=== PATIENT | female | born 1990 | race Caucasian/White ===

== ENCOUNTER 2016-11-29 13:09 | Inpatient (IN) | payer OTHER ==
[2016-11-29 14:33] LABS: BASOPHIL 0.5 % (0-2.0); EOSINOPHIL 0.1 % (0-4.5); MCHC 32.4 g/dl (32.0-36.0); MEAN CELL VOLUME 80.4 fl (80-96); MEAN PLT VOLUME 9.3 fl (7.5-11.1); NEUTROPHILS 78.8 % (42.8-82.8); PLATELET COUNT 143 K/MM3 (134-434); RDW 14.4 % (11.6-15.6); WHITE BLOOD COUNT 12.9 K/mm3 (4.0-10.0)
[2016-11-29 14:50] LABS: INR 0.99 (0.82-1.09); PROTHROMBIN TIME (PATIENT) 10.9 SEC (9.98-11.88)
[2016-11-29 14:53] LABS: ACTIVATED PTT 26.5 SECONDS (26.9-34.4)
[2016-11-29] MEDS ORDERED: DEXTROSE 5%-LACTATED RINGERS 1,000 ML IV SCH ×2 (15:00→17:30)
[2016-11-29 15:44] LABS: CALCIUM 9.4 mg/dL (8.5-10.1); COCKROFT - GAULT 167.875; CREATININE 0.6 mg/dL (0.55-1.02)
[2016-11-29 15:48] VITALS: BMI 32.2
--- NOTE | 2016-11-29 18:32 | HP ---
Past Medical History - Admission Chief Complaint: Vaginal bleeding History of Present Illness: 26 yo , @ 38 weeks gestation, admitted due to vaginal bleeding. Upon admission, Pt was 3 cm dilated 60% effaced.She c/o mild discomfort. History Source: Patient Limitations to Obtaining History: No Limitations - Past Medical History ...: 2 ...Para: 1 ...Term: 1 ...: 0 ...Spon : 0 ...Induced : 0 ...Multiple Gestation: 0 ...LMP: 02/19/16 ... Weeks Gestation by Dates: 40.4 ...EDC by Dates: 11/25/16 ...EDC by Sono: 12/01/16 - Past Surgical History Past Surgical History: Yes: None Hx Myomectomy: No Hx Transabdominal Cerclage: No - Smoking History Smoking history: Never smoked Have you smoked in the past 12 months: No Aproximately how many cigarettes per day: 3 - Alcohol/Substance Use Hx Alcohol Use: No History of Substance Use: reports: None - Social History Usual Living Arrangement: Yes: With Significant Other History of Recent Travel: No Home Medications - Allergies Allergies/Adverse Reactions: Allergies Allergy/AdvReac Type Severity Reaction Status Date / Time No Known Allergies Allergy Verified 11/29/16 14:37 - Home Medications Home Medications: Ambulatory Orders Nitrofurantoin Monohyd/M-Cryst [Macrobid -] 1 cap PO DAILY 10/10/16 Vit No.129/Iron/FA [ One Daily Tablet] 1 tab PO DAILY 10/10/16 Family Disease History - Family Disease History Family History: Unremarkable Review of Systems - Review of Systems Constitutional: reports: No Symptoms Eyes: reports: No Symptoms HENT: reports: No Symptoms Neck: reports: No Symptoms Cardiovascular: reports: No Symptoms Respiratory: reports: No Symptoms Gastrointestinal: reports: No Symptoms Genitourinary: reports: No Symptoms, Vaginal Bleeding Breasts: reports: No Symptoms Reported Musculoskeletal: reports: No Symptoms Integumentary: reports: No Symptoms Neurological: reports: No Symptoms Endocrine: reports: No Symptoms Hematology/Lymphatic: reports: No Symptoms Psychiatric: reports: No Symptoms Pain Intensity: 3 Physical Exam - Maternity Vital Signs: Vital Signs Temperature 98.4 F 11/29/16 18:00 Pulse Rate 84 11/29/16 18:00 Respiratory Rate 19 11/29/16 18:00 Blood Pressure 130/68 11/29/16 18:00 O2 Sat by Pulse Oximetry (%) Constitutional: Yes: Well Nourished Eyes: Yes: Conjunctiva Clear HENT: Yes: Atraumatic Neck: Yes: Supple, Trachea Midline Cardiovascular: Yes: Regular Rate and Rhythm Lungs: Clear to auscultation - Abdominal Exam/OB Number of Fetuses: Single Presentation: Vertex Contractions: Yes Regularity: Regular Intensity: Mild - Vaginal Exam/OB Vaginal Bleediing: Light Speculum Exam: No Dilatation (cm): 3 Effacement (%): 60 Amniotic Membrane Status: Intact Station: -2 - Physical Exam Musculoskeletal: Yes: WNL ...Motor Strength: WNL Psychiatric: Yes: Alert, Oriented - Labs Lab Results: CBC, BMP 11/29/16 14:22 11/29/16 14:22 Problem List - Problems (1) Vaginal bleeding during , antepartum Code(s): O46.90 - ANTEPARTUM HEMORRHAGE, UNSPECIFIED, UNSPECIFIED TRIMESTER Qualifiers: Trimester: third trimester Qualified Code(s): O46.93 - Antepartum hemorrhage, unspecified, third trimester Assessment/Plan Vaginal bleeding in Admit to L&D Pitocin augmentation Anticipate
[2016-11-29] MEDS ORDERED: OXYTOCIN 15 UNITS/ LR 250 ML 250 ML IVPB SCH (19:15)
[2016-11-29] MEDS ORDERED: ELECTROLYTE-148 SOLN 1,000 ML IV SCH (21:30)
[2016-11-29] MEDS ORDERED: FENTANYL/BUPIVACAINE/NS/PF - PCEA - 50 ML DISP.SYRIN EP SCH (21:45)
[2016-11-30] MEDS ORDERED: ACETAMINOPHEN 325 MG TABLET (FP) PO ONE (01:05)
[2016-11-30] MEDS ORDERED: BENZOCAINE 28 GM HEMORRHOIDAL OINTMENT TP PRN (03:05)
[2016-11-30] MEDS ORDERED: BISACODYL 10 MG SUPP.RECT RC PRN (03:05)
[2016-11-30] MEDS ORDERED: BENZOCAINE 20% 57 GM BOTTLE TP PRN (03:05)
[2016-11-30] MEDS ORDERED: WITCH HAZEL 50% (TUCKS) 40 PAD/JAR PAD TP PRN (03:05)
[2016-11-30] MEDS ORDERED: METHYLERGONOVINE MALEATE 0.2 MG/1 ML AMP IM PRN (03:05)
[2016-11-30] MEDS ORDERED: D5W-LR W/ 20 UNITS OXYTOCIN 1,000 ML IV SCH (03:15)
--- NOTE | 2016-11-30 03:16 | PN ---
Delivery - Delivery Vaginal Delivery: Spontaneous Type of Anesthesia: Epidural Episiotomy/Laceration: Midline EBL (cc): 300 Delivery, Single - Feeding Plan Initial Plan: Elected not to breastfeed exclusively throughout hospitalization Remarks - Remarks Remarks: Normal spontaneous vaginal delivery of a live infant boy over midlline episiotomy. Nose / Oropharynx suctioned @ perineum. Cord clamped and cut. Placenta expelled spontaneously intact. EBL 300 cc Midline episotomy repaired with 2.0 Chromic.
[2016-11-30] MEDS: ACETAMINOPHEN 325 MG TABLET (FP) PO PRN ×3 (05:35→20:31)
[2016-11-30] MEDS: IBUPROFEN 600 MG TABLET (FP) PO PRN ×3 (05:35→20:29)
[2016-11-30] MEDS: FERROUS SO4 325 MG TABLET (FP) PO SCH ×3 (08:45→17:04)
[2016-11-30] MEDS: PRENATAL VITAMINS W/ FOLIC ACID TABLET (FP) PO SCH (09:46)
[2016-11-30] MEDS ORDERED: DIPHTH,PERTUSS(ACELL),TET 0.5 ML DISP.SYRIN IM ONE (12:00)
[2016-12-01] MEDS: IBUPROFEN 600 MG TABLET (FP) PO PRN ×2 (05:55→16:30)
[2016-12-01] MEDS: ACETAMINOPHEN 325 MG TABLET (FP) PO PRN ×2 (05:57→16:31)
[2016-12-01] MEDS: FERROUS SO4 325 MG TABLET (FP) PO SCH ×3 (08:22→17:18)
[2016-12-01 08:51] LABS: BASOPHIL 0.4 % (0-2.0); EOSINOPHIL 0.8 % (0-4.5); MCH 26.3 pg (25.7-33.7); MCHC 32.9 g/dl (32.0-36.0); MEAN CELL VOLUME 79.9 fl (80-96); MEAN PLT VOLUME 10.4 fl (7.5-11.1); NEUTROPHILS 75.4 % (42.8-82.8); PLATELET COUNT 154 K/MM3 (134-434); RDW 14.5 % (11.6-15.6); WHITE BLOOD COUNT 16.7 K/mm3 (4.0-10.0)
[2016-12-01] MEDS: PRENATAL VITAMINS W/ FOLIC ACID TABLET (FP) PO SCH (09:52)
[2016-12-01] MEDS ORDERED: CEFAZOLIN (PRE-DOCKED) 50 ML IVPB SCH (14:00)
[2016-12-01] MEDS ORDERED: SENNOSIDES/DOCUSATE COMBO (SENNA PLUS) TABLET (UD) PO PRN (22:00)
[2016-12-02] MEDS: IBUPROFEN 600 MG TABLET (FP) PO PRN ×2 (00:31→08:01)
[2016-12-02] MEDS: ACETAMINOPHEN 325 MG TABLET (FP) PO PRN ×2 (00:32→08:01)
[2016-12-02] MEDS: FERROUS SO4 325 MG TABLET (FP) PO SCH ×2 (08:00→11:58)
[2016-12-02 08:40] VITALS: BP 126/75; PULSE 84; TEMP 98.8
[2016-12-02] MEDS: PRENATAL VITAMINS W/ FOLIC ACID TABLET (FP) PO SCH (09:44)
== END 2016-12-02 12:50 | disposition home or self-care (01) | DRG 560 ==
LOC: JDEL 13:09 → JLDR 13:40 → J3W 11-30 04:38
PROVIDERS: ADMIT Obstetrics & Gynecology; ATTEND Obstetrics & Gynecology
PROC: 0W8NXZZ Division of Female Perineum, External Approach (ICD-10-PCS; principal; 2016-11-30)
PROC: 10E0XZZ Delivery of Products of Conception, External Approach (ICD-10-PCS; 2016-11-30)
DX: O46.93 Antepartum hemorrhage, unspecified, third trimester (principal); Z3A.38 38 weeks gestation of pregnancy; Z37.0 Single live birth
CPT/HCPCS: 36415; 59409; 80048; 85025; 85610; 85730; 86593; 86850; 86900; 86901; 90715

== ENCOUNTER 2018-03-31 19:59 | Emergency (ER) | payer OTHER ==
--- NOTE | 2018-03-31 20:38 | PDOC ---
Rapid Medical Evaluation Chief Complaint: Edema Time Seen by Provider: 03/31/18 20:33 Medical Evaluation: Allergies Allergy/AdvReac Type Severity Reaction Status Date / Time No Known Allergies Allergy Verified 03/31/18 20:33 03/31/18 20:35 I have performed a brief in-person evaluation of this patient. The patient presents with a chief complaint of:L popliteal region swelling X 3wks, denies calf pain or recent travel, 22wks Pertinent physical exam findings:+ tenderness with swelling noted behind knee, unable to fully extend leg I have ordered the following:duplex The patient will proceed to the ED for further evaluation. Discharge Disposition - Diagnosis Leg pain Qualifiers: Laterality: left Qualified Code(s): M79.605 - Pain in left leg - Referrals - Patient Instructions - Post Discharge Activity
[2018-03-31 20:43] VITALS: BP 130/59; PULSE 73; TEMP 98.8; BMI 29.2
--- NOTE | 2018-03-31 22:01 | PDOC ---
History of Present Illness - General Chief Complaint: Edema Stated Complaint: LEFT LEG PAIN Time Seen by Provider: 03/31/18 20:33 - History of Present Illness Initial Comments: 03/31/18 22:01 27 -year-old 22 week gravid female presents for evaluation of one week of left leg pain. She states she was running for the train felt pain in the back of her knee since that time she's been having left knee pain radiating up to her lower back. She points to the lateral aspect of the left thigh as the area of the discomfort. Past History - Past Medical History Allergies/Adverse Reactions: Allergies Allergy/AdvReac Type Severity Reaction Status Date / Time No Known Allergies Allergy Verified 03/31/18 20:33 Home Medications: Ambulatory Orders NK [No Known Home Medication] 03/31/18 Asthma: No Cancer: No Cardiac Disorders: No COPD: No DVT: No Dementia: No Diabetes: No HTN: No Seizures: No Thyroid Disease: No - Reproductive History (#): 2 Para: 1 - Immunization History Immunization Up to Date: Yes - Suicide/Smoking/Psychosocial Hx Smoking Status: No Smoking History: Never smoked Have you smoked in the past 12 months: No Number of Cigarettes Smoked Daily: 3 Information on smoking cessation initiated: No Hx Alcohol Use: No Drug/Substance Use Hx: No Substance Use Type: None Hx Substance Use Treatment: No Review of Systems - Review of Systems Musculoskeletal: Yes: See HPI, Back Pain, Muscle Pain All Other Systems: Reviewed and Negative *Physical Exam - Vital Signs Last Vital Signs Temp Pulse Resp BP Pulse Ox 98.8 F 73 16 130/59 100 03/31/18 20:33 03/31/18 20:33 03/31/18 20:33 03/31/18 20:33 03/31/18 20:33 - Physical Exam Comments: Lumbar spine skin color and temperature are normal range of motion is full with pain at terminal flexion. There is right sided in left-sided paralumbar musculature spasm and tenderness. No midline tenderness. 5 out of 5 strength in bilateral lower extremities. Negative straight leg raise test bilaterally. She has tenderness about the lateral aspect of the hamstring. No medial thigh or calf tenderness. She is neurovascularly intact free of any gross sensorimotor deficits. 03/31/18 22:01 Medical Decision Making - Medical Decision Making Doppler study is negative. Is a hamstring strain with a lumbar radicular component. I'll treat her with Tylenol have her follow-up with orthopedic spine surgery. 03/31/18 22:02 *DC/Admit/Observation/Transfer Diagnosis at time of Disposition: Hamstring strain, Lumbar radiculopathy Leg pain Qualifiers: Laterality: left Qualified Code(s): M79.605 - Pain in left leg - Discharge Dispostion Disposition: HOME Condition at time of disposition: Stable Decision to Admit order: No - Referrals Referrals: Nathaniel Romero MD [Staff Physician] - Mohit Romero MD [Staff Physician] - - Patient Instructions Printed Discharge Instructions: DI for Hamstring Strain, Lumbar Radiculopathy, DI for Lumbar Radiculopathy Additional Instructions: Return to the emergency room should symptoms worsen or go unresolved. Please take Tylenol only finger pain. Please follow-up with spine surgery and orthopedic surgery for further evaluation and treatment options. - Post Discharge Activity
== END 2018-03-31 22:07 | disposition home or self-care (01) ==
LOC: JERFT 19:59
DX: S76.812A Strain of other specified muscles, fascia and tendons at thigh level, left thigh, initial encounter (principal); M79.605 Pain in left leg; X58.XXXA Exposure to other specified factors, initial encounter; Y93.89 Activity, other specified; Y92.9 Unspecified place or not applicable
CPT/HCPCS: 93971-TC; 99281-25

== ENCOUNTER 2018-07-15 11:45 | Inpatient (IN) | payer OTHER ==
[2018-07-15 13:32] VITALS: BMI 31.8
[2018-07-15] MEDS ORDERED: DEXTROSE 5%-LACTATED RINGERS 1,000 ML IV SCH (13:45)
[2018-07-15 13:47] LABS: INR 0.99 (0.83-1.09); PROTHROMBIN TIME (PATIENT) 11.7 SEC (9.7-13.0)
[2018-07-15 13:49] LABS: ACTIVATED PTT 22.5 SECONDS (25.2-36.5)
[2018-07-15 14:02] LABS: BASO % 0.4 % (0-2.0); EOS % 0.1 % (0-4.5); HEMATOCRIT 32.3 % (32.4-45.2); HEMOGLOBIN 9.8 GM/dL (10.7-15.3); LYMPH % 16.7 % (8-40); MCH 20.9 pg (25.7-33.7); MCHC 30.2 g/dl (32.0-36.0); MEAN CELL VOLUME 69.1 fl (80-96); MEAN PLT VOLUME 10.4 fl (7.5-11.1); MONO % 5.2 % (3.8-10.2); NEUT % 77.6 % (42.8-82.8); PLATELET COUNT 197 K/MM3 (134-434); RBC 4.68 M/mm3 (3.60-5.2); RDW 18.5 % (11.6-15.6); WHITE BLOOD COUNT 11.2 K/mm3 (4.0-10.0)
[2018-07-15] MEDS ORDERED: BUTORPHANOL TARTRATE 1 MG/ML VIAL IVPB ONE (14:14)
[2018-07-15] MEDS ORDERED: ELECTROLYTE-148 SOLN 1,000 ML IV SCH (14:15)
[2018-07-15] MEDS ORDERED: OXYTOCIN 30 UNITS in 0.9% NS 30 UNIT/500 ML INFUS.BAG IVPB SCH (14:15)
[2018-07-15 14:22] LABS: ANION GAP 9 MMOL/L (8-16); BLOOD UREA NITROGEN 4 mg/dL (7-18); CALCIUM 8.4 mg/dL (8.5-10.1); CHLORIDE 105 mmol/L (98-107); CO2 22 mmol/L (21-32); CREATININE 0.6 mg/dL (0.55-1.3); GLUCOSE,RANDOM 79 mg/dL (74-106); POTASSIUM 4.2 mmol/L (3.5-5.1); SODIUM 136 mmol/L (136-145)
[2018-07-15] MEDS ORDERED: OXYTOCIN 30 UNITS in 0.9% NS 30 UNIT/500 ML INFUS.BAG IVPB ONE (15:12)
[2018-07-15 15:20] LABS: ANISOCYTOSIS 2+; MACROCYTOSIS 0; OVALOCYTE 1+; PLATELET ESTIMATE NORMAL
--- NOTE | 2018-07-15 15:29 | HP ---
Past Medical History - Admission Chief Complaint: IOL History of Present Illness: 27yo @ 39wks here for elective IOL. No VB/LOF. No ctx. 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: Alzheimer's, CVA, Dementia, Migraine, Multiple Sclerosis, Peripheral Neuropathy, Parkinson's, Seizure, Syncope, TIA, Vertigo, Other Cardiovascular: No: AFIB, Aneurysm, Aortic Insufficiency, Aortic Stenosis, CAD, CHF, Deep Vein Thrombosis, HTN, Hyperlipdemia, [place], Mitral Insufficiency, Mitral Stenosis, Murmur, Pulmonary Hypertension, Other Pulmonary: No: Asthma, Bronchitis, Cancer, COPD, O2 Dependent, Pneumonia, Previously Intubated, Pulmonary Embolus, Pulmonary Fibrosis, Sleep Apnea, Other Gastrointestinal: No: Ascites, Cancer, Constipation, Crohn's Disease, Diverticulitis, Diverticulosis, Esophageal Varices, Gastritis, GERD, GI Bleed, Hemorrhoids, Hiatal Hernia, Inflamatory Bowel Disease, Irritable Bowel Disease, Pancreatitis, Peptic Ulcer Disease, Ulcerative Colitis, Other Hepatobiliary: No: Cirrhosis, Cholelithiasis, Cholecystitis, Choledocholithiasis , Hepatitis A, Hepatitis B, Hepatitis C, Other Renal/: No: Renal Failure, Renal Inusuff, BPH, Cancer, Hematuria, Hemodialysis , Neurogenic Bladder, Renal Calculi, UTI, Other ...: 4 ...Para: 2 ...Term: 1 ...: 1 ...Spon : 0 ...Induced : 0 ...Multiple Gestation: 0 ...LMP: 10/14/17 ... Weeks Gestation by Dates: 39.1 ...EDC by Dates: 07/21/18 ...EDC by Sono: 07/26/18 Heme/Onc: No: Anemia, B12 Deficiency, Bleeding Disorder, Cancer, Current Chemotherapy, Current Radiation Therapy, Hemochromatosis, Hypercoaguable State, Myeloproliferative Synd, Sickle Cell Disease, Sickle Cell Trait, Thrombocytopenia, Other Infectious Disease: No: AIDS, C-Diff, Herpes Zoster, HIV, MRSA, STD's, Tuberculosis, VREF, Other Psych: No: Addictions, Anxiety, Bipolar, Depression, Panic, Psychosis, Schizophrenia, Other - Past Surgical History Past Surgical History: Yes: None Hx Myomectomy: No Hx Transabdominal Cerclage: No - Smoking History Smoking history: Never smoked Have you smoked in the past 12 months: No Aproximately how many cigarettes per day: 3 - Alcohol/Substance Use Hx Alcohol Use: No History of Substance Use: reports: None - Social History History of Recent Travel: No Home Medications - Allergies Allergies/Adverse Reactions: Allergies Allergy/AdvReac Type Severity Reaction Status Date / Time No Known Allergies Allergy Verified 07/15/18 12:48 - Home Medications Home Medications: Ambulatory Orders Ferrous Sulfate 325 mg PO DAILY 07/06/18 Vitamins (Sjr) - 1 tab PO DAILY 07/06/18 Physical Exam - Maternity Vital Signs: Vital Signs Temperature 98.3 F 07/15/18 14:54 Pulse Rate 101 H 07/15/18 14:54 Respiratory Rate 20 07/15/18 14:54 Blood Pressure 120/56 L 07/15/18 14:54 O2 Sat by Pulse Oximetry (%) Constitutional: Yes: Well Nourished, No Distress, Calm - Abdominal Exam/OB Number of Fetuses: Single Presentation: Vertex Regularity: Irregular Intensity: Unaware Monitor Mode: External Category: I Accelerations: Uniform Decelerations: None - Vaginal Exam/OB Vaginal Bleediing: No Speculum Exam: No Dilatation (cm): 4 Effacement (%): 50 Amniotic Membrane Status: Intact Presentation: Vertex/Position Station: -3 - Labs Lab Results: CBC, BMP 07/15/18 13:15 07/15/18 13:15 Assessment/Plan 27yo @ 39+wks here for elective IOL -Admit to L&D -Cont EFM/[place] -IVFs -Epidural prn -AROM, pitocin Anticipate CHRISTINA Wild MD
--- NOTE | 2018-07-15 16:27 | PN ---
Progress Note, Labor Vaginal Exam #1 Labor Exam Date: 07/15/18 Labor Exam Time: 15:50 Heart Rate (range): Cat I Dilatation: 4 Effacement (%): 50 Amniotic Membrane Status: Ruptured Presentation: Vertex/Position Station: -3 Remarks: AROM, clears Epidural prn Anticipate Spencer Wild MD
[2018-07-15] MEDS ORDERED: BUTORPHANOL TARTRATE 1 MG/ML VIAL ONE ×2 (18:14)
[2018-07-15] MEDS ORDERED: PROMETHAZINE HCL 25 MG/1 ML VIAL IVPB ONE (18:15)
[2018-07-15] MEDS ORDERED: PROMETHAZINE HCL 25 MG/1 ML VIAL ONE (18:15)
--- NOTE | 2018-07-15 20:32 | PN ---
Progress Note, Labor Vaginal Exam #2 Heart Rate (range): Cat I Dilatation: 6 Effacement (%): 100 Amniotic Membrane Status: Ruptured Presentation: Vertex/Position Station: -3 Remarks: Getting more uncomfortable, requesting epidural Cat I tracing Anticipate Jackelyn Wild MD
[2018-07-15] MEDS ORDERED: FENTANYL/BUPIVACAINE/NS/PF - PCEA - 50 ML DISP.SYRIN EP ONE (20:40)
[2018-07-15] MEDS ORDERED: BUPIVACAINE HCL/PF 0.25% (2.5MG/ML) 10 ML VIAL ONE (20:47)
[2018-07-15] MEDS ORDERED: NALOXONE HCL 0.4 MG/ML VIAL IVPUSH PRN (21:08)
[2018-07-15] MEDS ORDERED: FENTANYL/BUPIVACAINE/NS/PF - PCEA - 50 ML DISP.SYRIN EP SCH (21:30)
--- NOTE | 2018-07-15 21:54 | PN ---
Progress Note, Labor Vaginal Exam #3 Heart Rate (range): Cat Dilatation: 10 Effacement (%): 100 Amniotic Membrane Status: Ruptured Presentation: Vertex/Position Station: 0 Remarks: Feeling urge to push Anticipate Jackelyn Wild MD
[2018-07-15] MEDS ORDERED: LIDOCAINE HCL 1% PRESERVATIVE FREE - 30ML VIAL ONE (21:57)
[2018-07-15] MEDS ORDERED: OXYTOCIN 20 UNITS in 0.9% NS 20 UNIT/1,000 ML INFUS.BAG IV ONE (21:57)
--- NOTE | 2018-07-15 22:32 | PN ---
Delivery - Delivery Vaginal Delivery: Spontaneous Type of Anesthesia: Epidural Episiotomy/Laceration: None EBL (cc): 350 Delivery, Single - Stages of Labor Placenta: Yes: Spontaneous - Condition of Infant Gender: Female Position: Right, OA - Feeding Plan Initial Plan: Elected not to breastfeed exclusively throughout hospitalization Remarks - Remarks Remarks: of VFI from RINA position over intact perineum. 39 week gestation. Epidural anesthesia. Spontaneous delivery of anterior shoulder. No nuchal or meconium. Apgars 9/9. Weight pending. Spontaneous delivery of intact placenta with 3VC. Fundus firm. Perineum inspected, no lacerations. EBL 350ml Mother and baby doing well. Jackelyn Wild MD
[2018-07-15] MEDS ORDERED: BENZOCAINE 20% 57 GM BOTTLE TP PRN (22:33)
[2018-07-15] MEDS ORDERED: BENZOCAINE 28 GM HEMORRHOIDAL OINTMENT TP PRN (22:33)
[2018-07-15] MEDS ORDERED: METHYLERGONOVINE MALEATE 0.2 MG/1 ML AMP IM PRN (22:33)
[2018-07-15] MEDS ORDERED: WITCH HAZEL 50% (TUCKS) 40 PAD/JAR PAD TP PRN (22:33)
[2018-07-15] MEDS ORDERED: OXYTOCIN 20 UNITS in 0.9% NS 20 UNIT/1,000 ML INFUS.BAG IV SCH (22:45)
[2018-07-16] MEDS: ACETAMINOPHEN 325 MG TABLET (FP) PO PRN ×4 (01:49→21:39)
[2018-07-16] MEDS: IBUPROFEN 600 MG TABLET (FP) PO PRN ×4 (01:50→21:38)
--- NOTE | 2018-07-16 05:35 | PN ---
Post Progress Note - Subjective Subjective: Pain controlled with po meds Type of Delivery: Vital Signs: Vital Signs Temperature 99.1 F 07/16/18 01:20 Pulse Rate 74 07/16/18 01:20 Respiratory Rate 20 07/16/18 01:20 Blood Pressure 120/65 07/16/18 01:20 O2 Sat by Pulse Oximetry (%) 100 07/15/18 23:00 Uterus: Yes: Fundus below umbilicus Abdomen/GI: Yes: Abdomen soft Lochia: Yes: Rubra Lochia, amount: Small Extremities: Yes: Calves non-tender Perineum: Yes: Intact Activity: Ambulating - Labs Labs: CBC WBC 11.2 K/mm3 (4.0-10.0) H 07/15/18 13:15 RBC 4.68 M/mm3 (3.60-5.2) 07/15/18 13:15 Hgb 9.8 GM/dL (10.7-15.3) L 07/15/18 13:15 Hct 32.3 % (32.4-45.2) L 07/15/18 13:15 MCV 69.1 fl (80-96) L 07/15/18 13:15 MCH 20.9 pg (25.7-33.7) L D 07/15/18 13:15 MCHC 30.2 g/dl (32.0-36.0) L 07/15/18 13:15 RDW 18.5 % (11.6-15.6) H 07/15/18 13:15 Plt Count 197 K/MM3 (134-434) D 07/15/18 13:15 MPV 10.4 fl (7.5-11.1) 07/15/18 13:15 Absolute Neuts (auto) 8.7 K/mm3 (1.5-8.0) H 07/15/18 13:15 Neutrophils % 77.6 % (42.8-82.8) 07/15/18 13:15 Lymphocytes % 16.7 % (8-40) 07/15/18 13:15 Monocytes % 5.2 % (3.8-10.2) 07/15/18 13:15 Eosinophils % 0.1 % (0-4.5) D 07/15/18 13:15 Basophils % 0.4 % (0-2.0) 07/15/18 13:15 Nucleated RBC % 0 % (0-0) 07/15/18 13:15 Hypochromia 1+ 07/15/18 13:15 Platelet Estimate Normal 07/15/18 13:15 Polychromasia 1+ 07/15/18 13:15 Poikilocytosis 1+ 07/15/18 13:15 Anisocytosis 2+ 07/15/18 13:15 Microcytosis 2+ 07/15/18 13:15 Macrocytosis 0 07/15/18 13:15 Ovalocytes 1+ 07/15/18 13:15 Assessment/Plan 27yo s/p , PPD#1 -Routine PP care -Po pain control -F/U labs -D/C to home on PPD#2 Spencer Wild MD
[2018-07-16 07:10] LABS: BASO % 0.3 % (0-2.0); EOS % 0.2 % (0-4.5); HEMATOCRIT 24.3 % (32.4-45.2); HEMOGLOBIN 7.8 GM/dL (10.7-15.3); LYMPH % 16.4 % (8-40); MCH 21.7 pg (25.7-33.7); MCHC 31.9 g/dl (32.0-36.0); MEAN PLT VOLUME 10.1 fl (7.5-11.1); MONO % 8.1 % (3.8-10.2); PLATELET COUNT 170 K/MM3 (134-434); RBC 3.58 M/mm3 (3.60-5.2); RDW 17.9 % (11.6-15.6); WHITE BLOOD COUNT 14.3 K/mm3 (4.0-10.0)
[2018-07-16] MEDS: PRENATAL VITAMINS W/ FOLIC ACID TABLET (FP) PO SCH (09:41)
[2018-07-16] MEDS: FERROUS SO4 325 MG TABLET (FP) PO SCH ×2 (09:41→17:48)
[2018-07-16 15:05] LABS: BASO % 0.4 % (0-2.0); EOS % 1.3 % (0-4.5); HEMATOCRIT 25.2 % (32.4-45.2); HEMOGLOBIN 8.1 GM/dL (10.7-15.3); LYMPH % 18.1 % (8-40); MEAN CELL VOLUME 68.7 fl (80-96); MEAN PLT VOLUME 10.6 fl (7.5-11.1); MONO % 6.5 % (3.8-10.2); NEUT % 73.7 % (42.8-82.8); PLATELET COUNT 175 K/MM3 (134-434); RBC 3.67 M/mm3 (3.60-5.2); RDW 18.4 % (11.6-15.6); WHITE BLOOD COUNT 11.4 K/mm3 (4.0-10.0)
[2018-07-16] MEDS ORDERED: SENNOSIDES/DOCUSATE COMBO (SENNA PLUS) TABLET (UD) PO PRN (22:00)
[2018-07-17] MEDS: FERROUS SO4 325 MG TABLET (FP) PO SCH (08:02)
[2018-07-17] MEDS: IBUPROFEN 600 MG TABLET (FP) PO PRN (08:02)
[2018-07-17] MEDS: ACETAMINOPHEN 325 MG TABLET (FP) PO PRN (08:03)
--- NOTE | 2018-07-17 08:59 | PN ---
Progress Note (short form) - Note Progress Note: ppd 2 ,no c/o , no excess vaginal bleeding, no dizziness CBC, BMP 07/16/18 14:28 07/15/18 13:15 Last Vital Signs Temp Pulse Resp BP Pulse Ox 97.6 F 76 20 117/71 100 07/16/18 22:00 07/16/18 22:00 07/16/18 22:00 07/16/18 22:00 07/15/18 23:00 abdomen soft, uterus firm lochia mild no calf tenderness impression anemai , asymptomatic plan iron, vit
[2018-07-17 09:17] VITALS: BP 126/74; PULSE 62; TEMP 98
[2018-07-17] MEDS: PRENATAL VITAMINS W/ FOLIC ACID TABLET (FP) PO SCH (10:30)
== END 2018-07-17 12:00 | disposition home or self-care (01) | DRG 560 ==
LOC: JLDR 11:45 → J3W 07-16 01:18
PROVIDERS: ADMIT Obstetrics & Gynecology; ATTEND Obstetrics & Gynecology
PROC: 10E0XZZ Delivery of Products of Conception, External Approach (ICD-10-PCS; principal; 2018-07-15)
PROC: 3E0P7VZ Introduction of Hormone into Female Reproductive, Via Natural or Artificial Opening (ICD-10-PCS; 2018-07-15)
DX: O80 Encounter for full-term uncomplicated delivery (principal); Z3A.39 39 weeks gestation of pregnancy; Z37.0 Single live birth
CPT/HCPCS: 36415; 59409; 80048; 85025; 85610; 85730; 86593; 86850; 86900; 86901

== ENCOUNTER 2018-09-21 05:02 | Day surgery (SDC) | payer OTHER ==
[2018-09-17 17:20] VITALS: BMI 28.1
[2018-09-21] MEDS ORDERED: MIDAZOLAM HCL 2 MG/2 ML SINGLE DOSE VIAL ONE (07:12)
[2018-09-21] MEDS ORDERED: SUCCINYLCHOLINE CHLORIDE 200 MG/10 ML VIAL ONE (07:13)
[2018-09-21] MEDS ORDERED: ROCURONIUM BROMIDE 50 MG/5 ML VIAL ONE (07:14)
[2018-09-21] MEDS ORDERED: PROPOFOL 20 ML ONE ×5 (07:14→08:07)
[2018-09-21] MEDS ORDERED: ONDANSETRON 4 MG/2 ML VIAL IVPUSH PRN (07:31)
[2018-09-21] MEDS ORDERED: BUPIVACAINE HCL/PF 0.5% (5MG/ML) 10 ML VIAL ONE (07:35)
--- NOTE | 2018-09-21 07:37 | HP ---
History & Physical Update - Physical Physical: No Change - Assessment Assessment: No Change - Plan Plan: No Change (No change since preop med eval o h/o dvt/use of AC)
[2018-09-21] MEDS ORDERED: LACTATED RINGERS SOLUTION 1,000 ML IV SCH (07:45)
--- NOTE | 2018-09-21 07:58 | HP ---
Admitting History and Physical - Admission Chief Complaint: 27yo multip here for Tubal sterilization History of Present Illness: 27yo g4p 2021 here for permanent sterilization. 3 children. Certain she wants no more children. No CP/SOB. 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: Alzheimer's, CVA, Dementia, Migraine, Multiple Sclerosis, Peripheral Neuropathy, Parkinson's, Seizure, Syncope, TIA, Vertigo, Other Cardiovascular: No: AFIB, Aneurysm, Aortic Insufficiency, Aortic Stenosis, CAD, CHF, Deep Vein Thrombosis, HTN, Hyperlipdemia, [place], Mitral Insufficiency, Mitral Stenosis, Murmur, Pulmonary Hypertension, Other Pulmonary: No: Asthma, Bronchitis, Cancer, COPD, O2 Dependent, Pneumonia, Previously Intubated, Pulmonary Embolus, Pulmonary Fibrosis, Sleep Apnea, Other Gastrointestinal: No: Ascites, Cancer, Constipation, Crohn's Disease, Diverticulitis, Diverticulosis, Esophageal Varices, Gastritis, GERD, GI Bleed, Hemorrhoids, Hiatal Hernia, Inflamatory Bowel Disease, Irritable Bowel Disease, Pancreatitis, Peptic Ulcer Disease, Ulcerative Colitis, Other Hepatobiliary: No: Cirrhosis, Cholelithiasis, Cholecystitis, Choledocholithiasis , Hepatitis A, Hepatitis B, Hepatitis C, Other Renal/: No: Renal Failure, Renal Inusuff, BPH, Cancer, Hematuria, Hemodialysis , Neurogenic Bladder, Renal Calculi, UTI, Other ...LMP: 09/03/18 Heme/Onc: No: Anemia, B12 Deficiency, Bleeding Disorder, Cancer, Current Chemotherapy, Current Radiation Therapy, Hemochromatosis, Hypercoaguable State, Myeloproliferative Synd, Sickle Cell Disease, Sickle Cell Trait, Thrombocytopenia, Other Infectious Disease: No: AIDS, C-Diff, Herpes Zoster, HIV, MRSA, STD's, Tuberculosis, VREF, Other Psych: No: Addictions, Anxiety, Bipolar, Depression, Panic, Psychosis, Schizophrenia, Other Musculoskeletal: Yes: Bursitis, Chronic low back pain, Hemiparesis, Hemiplegia, Osteoarthritis, Paraplegia, Other Rheumatology: No: Fibromyalgia, Gout, Lupus, Rheumatoid Arthritis, Sarcoidosis, Vasculitis, Other ENT: No: Allergic Rhinitis, Sinusitis, Other Dermatology: Yes: Psoriasis. No: Basal Cell, Cellulitis, Eczema, Melanoma, Squamous Cell, Other - Past Surgical History Past Surgical History: Yes: None - Smoking History Smoking history: Never smoked Have you smoked in the past 12 months: No Aproximately how many cigarettes per day: 3 - Alcohol/Substance Use Hx Alcohol Use: No History of Substance Use: reports: None - Social History History of Recent Travel: No Home Medications - Allergies Allergies/Adverse Reactions: Allergies Allergy/AdvReac Type Severity Reaction Status Date / Time No Known Allergies Allergy Verified 09/21/18 06:27 - Home Medications Home Medications: Ambulatory Orders Ferrous Sulfate 325 mg PO DAILY 07/06/18 Review of Systems - Review of Systems Constitutional: denies: No Symptoms, Chills, Diaphoresis, Fever, Lethargy, Loss of Appetite, Malaise, Night Sweats, Unintentional Wgt. Loss, Weakness, Other Eyes: denies: No Symptoms, Blind Spots, Blurred Vision, Double Vision, Eye Pain , Floaters, Photophobia, Recent Change in Vision, Other HENT: denies: No Symptoms, Difficult Swallowing, Ear Discharge, Ear Pain, Epistaxis, Gingival Bleeding, Hearing Loss, Mouth Swelling, Nasal Congestion, Ocular Prosthesis, Throat Pain, Toothache, Ringing in Ears, Other Physical Examination Vital Signs: Vital Signs Temperature 98.0 F 09/21/18 06:24 Pulse Rate 65 09/21/18 06:24 Respiratory Rate 20 09/21/18 06:24 Blood Pressure 110/64 09/21/18 06:24 O2 Sat by Pulse Oximetry (%) 100 09/21/18 06:21 Constitutional: Yes: Well Nourished, No Distress, Calm Eyes: Yes: WNL, Conjunctiva Clear, EOM Intact HENT: Yes: WNL, Atraumatic, Normocephalic Neck: Yes: WNL, Supple, Trachea Midline Cardiovascular: Yes: WNL, Regular Rate and Rhythm Respiratory: Yes: WNL, Regular, CTA Bilaterally Gastrointestinal: Yes: WNL, Normal Bowel Sounds Musculoskeletal: Yes: WNL Extremities: Yes: WNL Edema: No Integumentary: Yes: WNL Neurological: Yes: WNL, Alert, Oriented ...Motor Strength: WNL Psychiatric: Yes: WNL Assessment/Plan 27yo multip here for tubal sterilization NPO, IVFs Risk of laparoscopic Tubal sterilization discussed- including permanency, regret , bleeding, infection and injury to bladder, bowel, ovaries, uterus, ureters and surrounding vessels and nerves. All questions answered. Consent signed Jackelyn Wild MD
[2018-09-21] MEDS ORDERED: DEXAMETHASONE SOD PHOSPHATE 4 MG/1 ML VIAL ONE ×2 (08:08→08:16)
[2018-09-21] MEDS ORDERED: KETOROLAC TROMETHAMINE 30 MG/1 ML VIAL ONE ×2 (08:08→08:16)
[2018-09-21] MEDS ORDERED: NEOSTIGMINE METHYLSULFATE 0.5 MG/ML - 10 ML MDV ONE (08:10)
[2018-09-21] MEDS ORDERED: GLYCOPYRROLATE 0.2 MG/1 ML VIAL ONE ×2 (08:10→08:15)
[2018-09-21] MEDS ORDERED: METOPROLOL TARTRATE 5 MG/5 ML VIAL ONE (08:15)
[2018-09-21] MEDS ORDERED: LIDOCAINE HCL/PF 2% SDV 5ML VIAL ONE (08:17)
[2018-09-21] MEDS ORDERED: BUPIVACAINE HCL/PF (5 MG/ML) 30 ML VIAL IJ ONE ×2 (08:20)
[2018-09-21] MEDS ORDERED: ACETAMINOPHEN 1000 MG/100 ML VIAL (NON FORMULARY) IVPB ONE ×2 (09:23→11:56)
[2018-09-21] MEDS ORDERED: ACETAMINOPHEN INJECTION 100 ML IVPB ONE (09:24)
[2018-09-21 12:27] VITALS: BP 105/60; PULSE 62; TEMP 98.1
--- NOTE | 2018-09-21 12:56 | SURG ---
Surgery Powerplant Operator Note Powerplant Operator: Dayana Lyons PA-C (Suzy) Date of Service: 09/21/18 Diagnosis: Desire permanent sterilization Procedure: Bilateral laparoscopic salpingectomy I was present for the entirety of the operative procedure. For further detail, please refer to operative report. Visit type - Case Type Case Type: Scheduled - Emergency Emergency Visit: No - New patient This patient is new to me today: Yes Date on this admission: 09/21/18 - Critical Care Critical Care patient: No
--- NOTE | 2018-09-21 19:57 | OP ---
DATE OF OPERATION: 09/21/2018 PREOPERATIVE DIAGNOSIS: Desires permanent sterilization. POSTOPERATIVE DIAGNOSIS: Desires permanent sterilization. PROCEDURE: Laparoscopic bilateral salpingectomy. SURGEON: Jackelyn Wild MD AD COMPOSITOR: Dayana CABALLERO ANESTHESIA: General. IV FLUIDS: 600. ESTIMATED BLOOD LOSS: 10 mL. URINE OUTPUT: 100 mL of clear urine. FINDINGS: Normal tubes and ovaries bilaterally. DESCRIPTION OF PROCEDURE: After appropriate consents were signed, the patient was taken to the operating room. Spinal anesthesia was administered. She was placed in dorsal lithotomy position. She was prepped and draped in a normal sterile fashion. A Wilson catheter was inserted. Then 0.25% Marcaine was injected into the umbilicus and a small incision was made with a 15 scalpel to accommodate a 5-mm trocar, which was inserted under direct visualization. The abdomen was entered without difficulty. The abdomen was insufflated with gas. The patient was placed in Trendelenburg position. Under direct visualization, a left lower quadrant and right lower quadrant 5-mm trocar ports were inserted after Marcaine had been injected initially. Pelvic anatomy had been noted to be normal. The left fallopian tube was grasped with an atraumatic grasper, carried through to the fimbriated edges, and noted to be normal. Using the LigaSure device, the fallopian tube was transected along the mesosalpinx and then at its insertion to the uterus transected with a LigaSure. The left fallopian tube was then removed from the right lower quadrant port without difficulty. The bite sites were noted to be hemostatic. Attention was then paid to the right fallopian tube, which was then ligated in a similar fashion and also removed through the right lower quadrant port. Both bite sites were reinspected and noted to be hemostatic. The left lower quadrant and right lower quadrant ports were then removed under direct visualization. The umbilical port was then removed. The abdomen was deflated of gas. The incisions were closed with a 4-0 Biosyn with appropriate dressing in place. Wilson catheter had been inserted at the start of the procedure and was removed at the end with 100 mL of urine noted that was clear. The patient tolerated the procedure well. Sponge, lap, and needle counts were correct x3. No antibiotics were given. She was taken from the operating room to the PACU in stable condition. MD ENMANUEL GREGORY/[id number] MTDD
--- NOTE | 2018-09-23 17:05 | PATH ---
Surgical Pathology Report Patient Name: VIPUL VANESSA [facility]. Rec. #: [id number] /Age/Gender: 1990 (Age: 27) / F Account: [id number] Location: [facility] SURGICAL Taken: 09/21/2018 Received: 09/21/2018 Reported: 09/23/2018 Physicians: Jakcelyn Wild Specimen(s) Received A: FALLOPIAN TUBE, RIGHT B: FALLOPIAN TUBE, LEFT Clinical History Desired permanent sterilization Final Diagnosis A. FALLOPIAN TUBE, RIGHT, LAPAROSCOPIC SALPINGECTOMY: FALLOPIAN TUBE WITH ENDOSALPINGOSIS (INCLUDING FIMBRIATED END AND FULL LUMINAL PORTION). B. FALLOPIAN TUBE, LEFT, LAPAROSCOPIC SALPINGECTOMY: FALLOPIAN TUBE WITH ENDOSALPINGOSIS AND PARATUBAL CYST (INCLUDING FIMBRIATED END AND FULL LUMINAL PORTION). Electronically Signed Lynda Machuca M.D. Gross Description A. Received in formalin labeled "right fallopian tube," is a 4.5 cm in length fimbriated fallopian tube. The outer surface is brito-telles and smooth. Sectioning reveals an unremarkable lumen. [employer] sections are submitted in 2 cassettes as follows: 1-fimbria; 2-cross sections of fallopian tube. B. Received in formalin labeled "left fallopian tube," is a 4 cm in length fimbriated fallopian tube. The outer surface is brito-telles and smooth. Sectioning reveals an unremarkable lumen. [employer] sections are submitted in 2 cassettes as follows: 1-fimbria; 2-cross sections of fallopian tube. 09/22/201809/22/2018
== END 2018-09-21 12:26 | disposition home or self-care (01) ==
LOC: JASU-SURG 05:02
PROVIDERS: ATTEND Obstetrics & Gynecology
PROC: 0U574ZZ Destruction of Bilateral Fallopian Tubes, Percutaneous Endoscopic Approach (ICD-10-PCS; principal; 2018-09-21 07:30)
DX: Z30.2 Encounter for sterilization (principal)
CPT/HCPCS: 88302-TC; 94760; J0131

== ENCOUNTER 2022-05-05 17:35 | Emergency (ER) | payer SELFPAY ==
[2022-05-05 17:47] VITALS: BP 142/82; PULSE 110; RESP 18; TEMP 98.4; BMI 26.4
[2022-05-05 19:16] LABS: PH,URINE 5.5 (5.0-8.0); URINE APPEARANCE CLEAR; URINE BILIRUBIN NEGATIVE (NEGATIVE); URINE COLOR YELLOW; URINE GLUCOSE (UA) 1+ (NEGATIVE); URINE KETONE TRACE (NEGATIVE); URINE LEUK ESTERASE NEGATIVE (NEGATIVE); URINE NITRITE NEGATIVE (NEGATIVE); URINE PROTEIN NEGATIVE (NEGATIVE)
[2022-05-05 19:17] LABS: BASO % 0.4 % (0-2.0); EOS % 0.5 % (0-4.5); HEMATOCRIT 34.3 % (32.4-45.2); HEMOGLOBIN 10.7 GM/dL (10.7-15.3); LYMPH % 18.7 % (8-40); MCH 21.6 pg (25.7-33.7); MCHC 31.2 g/dl (32.0-36.0); MEAN CELL VOLUME 69.1 fl (80-96); MONO % 4.9 % (3.8-10.2); NEUT % 75.5 % (42.8-82.8); PLATELET COUNT 376 10^3/uL (134-434); RBC 4.96 M/mm3 (3.60-5.2); RDW 19.5 % (11.6-15.6); WHITE BLOOD COUNT 10.9 K/mm3 (4.0-10.0)
[2022-05-05 19:40] LABS: CALCIUM 9.2 mg/dL (8.5-10.1)
[2022-05-05 19:41] LABS: ALBUMIN 4.1 g/dl (3.4-5.0); BLOOD UREA NITROGEN 14.9 mg/dL (7-18)
[2022-05-05 19:44] LABS: CREATININE 0.9 mg/dL (0.55-1.3)
[2022-05-05 19:45] LABS: BILIRUBIN,TOTAL 0.5 mg/dL (0.2-1); TOT PROT 7.8 g/dl (6.4-8.2)
[2022-05-05] MEDS ORDERED: SODIUM CHLORIDE 0.9% 500 ML INFUS.BAG IV ONE (20:01)
[2022-05-05 20:08] LABS: HCG,QUALITATIVE URINE Negative
[2022-05-05 20:58] LABS: ANISOCYTOSIS 3+; MACROCYTOSIS 0; OVALOCYTE 1+; TARGET CELLS 1+
== END 2022-05-05 20:44 | disposition home or self-care (01) ==
LOC: JER 17:35
DX: R42 Dizziness and giddiness (principal); S06.0X0A Concussion without loss of consciousness, initial encounter
CPT/HCPCS: 36415; 70450-TC; 80053; 81003; 84703; 85025; 93005; 93010; 99284-25

== ENCOUNTER 2023-01-26 09:24 | Emergency (ER) | payer OTHER ==
[2023-01-26 09:45] VITALS: BP 119/75; PULSE 71; RESP 18; TEMP 98.5; BMI 27.3
[2023-01-26] MEDS ORDERED: IBUPROFEN 600 MG TABLET (FP) PO ONE ×2 (10:12→10:16)
== END 2023-01-26 11:10 | disposition home or self-care (01) ==
LOC: JERFT 09:24 → JER 09:24 → JERFT 11:10
DX: R22.0 Localized swelling, mass and lump, head (principal); R51.9 Headache, unspecified; S00.83XA Contusion of other part of head, initial encounter; W22.8XXA Striking against or struck by other objects, initial encounter; Y99.0 Civilian activity done for income or pay
CPT/HCPCS: 99282-25